=== PATIENT | female | born 1960 | race Caucasian/White ===

== ENCOUNTER → 2020-03-12 13:49 | Outpatient (CLI) | payer MEDICAID, SELFPAY ==
[2019-12-01 11:37] VITALS: BMI 47.2
--- NOTE | 2020-03-12 13:51 | CT_ITS ---
STUDY: CT CHEST WITHOUT CONTRAST REASON FOR EXAM: Female, 59 years old. COUGH, DYSPNEA. HI RES RADIATION DOSAGE (If Supplied By Facility): CTDIvol = ( 24.18 ) mGy, DLP = ( 775.89 ) mGycm TECHNIQUE: Transaxial imaging was performed without the administration of intravenous contrast material. Multiplanar coronal and sagittal images were reformatted. Individualized dose optimization techniques were used for this CT. COMPARISON: None. FINDINGS: Small benign-appearing bilateral axillary lymph nodes. Minimal degree of groundglass appearance is seen in the anterior peripheral aspect of the left upper lobe as well as in the left perihilar regions slightly more prominent on the right side. Mild degree of increased interstitial markings are seen in the posterior medial segments of the lower lobes suggestive of scarring. There is no demonstrated pleural abnormality. There are calcifications of the coronary arteries. Normal mediastinum. Normal hilar regions. Normal unenhanced pulmonary arteries. Normal aorta arch and descending thoracic aorta. There are multi-level degenerative changes of the thoracic spine. Diffuse fatty infiltration of the liver. CT/Chest without Contrast IMPRESSION: Findings suggest a mild degree of linear scarring at the lung bases as well as a mild degree of the groundglass appearance in the perihilar regions bilaterally as well as in the left upper lobe. Electronically Signed: Gaston Clifford, at 14:49 EST , Service support ,
== END ==
PROVIDERS: PCP Family Medicine; Referring Provider Internal Medicine Pulmonary Disease; Visit Provider Internal Medicine Pulmonary Disease
DX: R05 Cough (principal); R06.00 Dyspnea, unspecified
CPT/HCPCS: 71250

== ENCOUNTER 2020-04-10 12:25 | Day surgery (SDC) | payer MEDICAID, SELFPAY ==
[2019-12-01 11:37] VITALS: BMI 47.2
[2020-04-10] VITALS (12 sets, daily range): BP systolic 152–188; BP diastolic 74–107; PULSE 76–90; RESP 16–18; TEMP 36.2–36.8; O2SAT 93–100; BMI 47.5
--- NOTE | 2020-04-10 | FLU_PTH ---
PATIENT: MEET LOVETT LOC: EN U#:[id number] AGE/SX: 59/F ROOM: RE04/10/[address]: Dr. Obie Jacob MD : 1960 BED: DIS: 04/10/2020 SPEC #: [id number] RECD: 04/10/20 14:26 STATUS: CECILIA REQamar #: [id number] NETTA: 04/10/20 00:[address]: Obie Jacob V DEPT: CYTOLOGY RECD BY: Micheal Meadows ENTERED: 04/11/20 12:33 SP TYPE: Fluid OTHR DR: Dr. 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 AM:anne 04/12/2020 COMMENT See corresponding biopsy ([id number]). CYTOLOGY STUDY Slides are reviewed. CYTOLOGY GROSS Received is 55 ml of red cloudy fluid labeled with the patient's name and and designated per the requisition as BAL RML. Submitted for cytology preparation including cell block. / anne 04/11/2020 TC:5 CPT: 71058, 81710
--- NOTE | 2020-04-10 | LUNG_PTH ---
PATIENT: MEET LOVETT LOC: EN U#:[id number] AGE/SX: 59/F ROOM: RE04/10/[address]: Dr. Obie Jacob MD : 1960 BED: DIS: 04/10/2020 SPEC #: [id number] RECD: 04/10/20 14:26 STATUS: CECILIA CAT #: [id number] NETTA: 04/10/20 00:[address]: Obie Jacob V DEPT: SURGICAL PATHOLOGY RECD BY: Micheal Meadows ENTERED: 04/11/20 12:34 SP TYPE: LUNG BX OTHR DR: Dr. Jeniffer Vincent DO Tissues: Bronchus of right middle lobe Procedures: Elastin Stain (control) Trichrome (control) Special Stain Group II Surgery Specimen Level IV Retic (control) Iron Stain (control) HEADER OPERATION: Bronchoscopy with fluoroscopy (MAC) PRE-OP DIAGNOSIS: Idiopathic nonspecific interstitial pneumonitis TISSUE SUBMITTED: [facility] DIAGNOSIS Right middle lobe of lung, biopsy: Focal mild fibrosis. See microscopic description and comment. AM:anne 04/12/2020 COMMENT Special stains of trichrome, reticulin, elastin and iron with matched controls support the above diagnosis. Case has been reviewed in consultation with Dr. Ya who concurs with the above diagnosis. IDC:SJ MICROSCOPIC DESCRIPTION Microscopic sections show subbronchial tissue with mild fibrosis and fragments of parenchymal tissue with collapse of alveolar sacs and minimal increase in interalveolar fibrous tissue. There is no evidence of vasculitis and only minimal chronic inflammatory cells are present. There is no evidence of malignancy. GROSS DESCRIPTION Received in fixative is one container labeled with the patient's name and designated right middle lobe biopsy. The specimen consists of multiple irregular fragments of light andre soft tissue that in aggregate measure 0.8 x 0.5 x <0.1 cm. The specimen is totally submitted in one cassette. / AM:anne 04/11/20 TC:3 CPT: 57160, 51354 x4
[2020-04-10] MEDS: Lactated Ringers 1,000 ML 100 ML IV (12:56)
[2020-04-10] MEDS: Lidocaine 2% Jelly 1 APPLIC Tube (13:17)
[2020-04-10] MEDS: Phenylephrine 0.25% 15 ML NASAL.SRY 15 SPRAY NASAL (13:17)
[2020-04-10] MEDS: Lidocaine 2% (5ml sdv) 5 ML VIAL.MPF (13:20)
--- NOTE | 2020-04-10 14:13 | OP.BRONCH_ITS ---
Patient Name: Mila Mullins Procedure Date: 04/10/2020 1:06 PM Date of : 1960 Age: 59 Procedure: Bronchoscopy Indications: Chronic cough, Chronic cough with abnormal CT Providers: Obie Jacob MD Referring MD: Jeniffer Hoffman Do Medicines: Lidocaine 2% Nebulizer 2.5 mL, Lidocaine 2% applied to the tracheobronchial tree 10 mL Complications: No immediate complications. Estimated blood loss: Minimal Procedure: Pre-Anesthesia Assessment: - A History and Physical has been performed. The patient's medications, allergies and sensitivities have been reviewed. - The risks and benefits of the procedure and the sedation options and risks were discussed with the patient. All questions were answered and informed consent was obtained. - Patient identification and proposed procedure were verified prior to the procedure by the physician. The procedure was verified in the endoscopy suite. After I obtained informed consent, the scope was passed under direct vision. Throughout the procedure, the patient's blood pressure, pulse, and oxygen saturations were monitored continuously. The bronchoscope was introduced through the mouth and advanced to the tracheobronchial tree of both lungs. The procedure was accomplished without difficulty. The patient tolerated the procedure well. Moderate Sedation: An independent trained observer was present and continuously monitored the patient. Findings: Respiratory tract: The larynx is normal. The vocal cords appear normal. The subglottic space is normal. The trachea is of normal caliber. The paty is sharp. The entire tracheobronchial tree was examined to at least the first subsegmental level. Bronchial mucosa and anatomy are normal; there are no endobronchial lesions and no secretions, except in the except in both lower lobes. Transbronchial biopsies of an area of infiltration were performed in the lateral segment of the right middle lobe using forceps and sent for histopathology examination. The procedure was guided by fluoroscopy. Transbronchial biopsy technique was selected because the sampling site was not visible endoscopically. Five biopsy passes were performed. Five biopsy samples were obtained. Impression: - Chronic cough - Chronic cough with abnormal CT - Transbronchial lung biopsies were performed. Recommendation: - Await BAL, biopsy and cytology results. Procedure Code(s): --- Professional --- 89901, Bronchoscopy, rigid or flexible, including fluoroscopic guidance, when performed; with transbronchial lung biopsy(s), single lobe Diagnosis Code(s): --- Professional --- R05, Cough R91.8, Other nonspecific abnormal finding of lung field CPT copyright 2017 [employer]. All rights reserved. The codes documented in this report are preliminary and upon polisher balance screwhead review may be revised to meet current compliance requirements. MD Obie Dobbs MD 04/10/2020 2:12:49 PM This report has been signed electronically. Number of Addenda: 0 Note Initiated On: 04/10/2020 1:06 PM
--- NOTE | 2020-04-10 14:16 | RAD_ITS ---
STUDY: X-RAY CHEST REASON FOR EXAM: Female, 59 years old. Post op bronchoscopy. TECHNIQUE: Single AP portable view of the chest. COMPARISON: None. FINDINGS: There is evidence of consolidation in the right middle lobe. There is no demonstrated pleural abnormality. Normal size heart. Normal mediastinum and azra. Normal visualized pulmonary arteries. There is atherosclerotic tortuosity of the aortic arch and descending thoracic aorta. There are diffuse degenerative changes of the visualized thoracic spine. Normal visualized ribs, clavicles, and shoulders. There is no demonstrated abnormality of the visualized soft tissue structures of the upper abdomen. RAD/Chest 1 View (Portable) IMPRESSION: Right middle lobe consolidation. Electronically Signed: Gaston Clifford MD at 15:06 EST , Service support ,
[2020-04-10 14:53] LABS: Cytology, Body Fluid / CSF SEE PATHOLOGY REPORT
[2020-04-10 16:26] LABS: Source- Body Fluid BRONCHIAL LAVAGE
[2020-04-10 16:27] LABS: Appearance/Body Fluid TURBID; Color/Body Fluid RED
[2020-04-10 16:42] LABS: White Blood Count/Body Fluid 200 /mm3
[2020-04-10 17:43] LABS: Lymphocytes 26 %; Monocytes 2 %; Neutrophil (Segs) 72 %
[2020-04-10 17:45] LABS: Body Fluid QC Type(s) BF1Q
[2020-04-11 12:09] LABS: Pathologist Comment/Body Fluid Reviewed
== END 2020-04-10 16:19 | disposition home or self-care (01) ==
LOC: EN 12:26 → AC 12:26
PROVIDERS: PCP Family Medicine; Referring Provider Family Medicine; Visit Provider Internal Medicine Pulmonary Disease
PROC: 0BJ08ZZ Inspection of Tracheobronchial Tree, Via Natural or Artificial Opening Endoscopic (ICD-10-PCS; CPT 31622; principal; 2020-04-10 12:40)
DX: J84.113 Idiopathic non-specific interstitial pneumonitis (principal); Z20.822 Contact with and (suspected) exposure to COVID-19; J45.30 Mild persistent asthma, uncomplicated; R91.8 Other nonspecific abnormal finding of lung field; M32.9 Systemic lupus erythematosus, unspecified; M06.9 Rheumatoid arthritis, unspecified; M35.00 Sjogren syndrome, unspecified; E78.00 Pure hypercholesterolemia, unspecified; G47.33 Obstructive sleep apnea (adult) (pediatric); E66.09 Other obesity due to excess calories; Z68.42 Body mass index [BMI] 45.0-49.9, adult; Z79.899 Other long term (current) drug therapy; Z78.0 Asymptomatic menopausal state
CPT/HCPCS: 31628; 71045; 76000; 87015; 87101; 87116; 87206; 87426; 88108; 88305; 88313; 89050; C9803; J7120

== ENCOUNTER → 2020-05-15 15:46 | Outpatient (CLI) | payer MEDICAID, SELFPAY ==
[2020-04-10 12:49] VITALS: BMI 47.5
--- NOTE | 2020-05-15 16:06 | RAD_ITS ---
STUDY: X-RAY CHEST REASON FOR EXAM: Female, 60 years old. ASTHMA/INTERSTITIAL PNEUMONIA TECHNIQUE: 2 views COMPARISON: Prior chest radiograph of 04/10/2020 FINDINGS: The right middle lobe pneumonic infiltrate has essentially resolved from the prior exam. Lung mackey are now expanded and clear of acute changes. Normal size heart. Normal mediastinum and azra. Normal visualized pulmonary arteries. Normal visualized aortic arch and descending thoracic aorta. There are diffuse degenerative changes of the visualized thoracic spine. Normal visualized ribs, clavicles, and shoulders. There is no demonstrated abnormality of the visualized soft tissue structures of the upper abdomen. RAD/Chest PA and Lateral IMPRESSION: Normal chest with no consolidation, infiltrates, pleural effusion or cardiomegaly. Complete clearing of the prior right middle lobe pneumonia. Electronically Signed: Haleigh Braga MD at 16:30 EST , Service support ,
[2020-05-15 16:52] LABS: Basophil# 0.02 X10^3/uL; Basophil% 0.2 % (0-1); Eosinophil# 0.01 X10^3/uL; Eosinophils% 0.1 % (0-5); Hemoglobin 15.6 g/dL (12.0-15.0); Lymphocyte % 10.5 % (19-41); Mean Corp Hgb Conc 32.5 g/dL (32-36); Mean Corpuscular Volume 101.5 fL (81-99); Mean Platelet Vol. 10.2 fl (6.2-12.0); Monocyte# 0.16 X10^3/uL; Monocyte% 1.4 % (0-10); NRBC Flagged by Analyzer 0 % (0-5); Neutrophil # 9.96 X10^3/uL (2.7-7.7); Neutrophil % 87.3 % (47-70); Platelet Count 310 K/mm3 (150-450); RBC Distribution Width CV 12.6 % (11.6-14.6); RBC Distribution Width SD 47.9 fl (35.1-43.9); Red Blood Count 4.73 M/mm3 (4.2-5.4); White Blood Count 11.4 K/mm3 (4.4-11.0)
[2020-05-15 17:18] LABS: Erythrocyte Sedimentation Rate 3 mm/hr (0-30)
[2020-05-15 17:42] LABS: AST(SGOT) 28 U/L (15-37); Alanine Aminotransfer ALT/SGPT 48 U/L (13-56); Albumin, Serum 4.1 g/dL (3.2-5.0); Alkaline Phosphatase 68 U/L (45-117); Bilirubin, Direct 0.12 mg/dL (0.00-0.30); Globulin 3.5 g/dL (2.2-4.2); Protein, Total 7.6 g/dL (6.4-8.2)
== END ==
PROVIDERS: PCP Family Medicine; Referring Provider Internal Medicine Pulmonary Disease; Visit Provider Internal Medicine Pulmonary Disease
DX: J45.909 Unspecified asthma, uncomplicated (principal); J84.89 Other specified interstitial pulmonary diseases
CPT/HCPCS: 36415; 71046; 80076; 85025; 85652

== ENCOUNTER → 2020-06-10 14:26 | Outpatient (CLI) | payer MEDICAID, SELFPAY ==
[2020-04-10 12:49] VITALS: BMI 47.5
--- NOTE | 2020-06-10 14:29 | RAD_ITS ---
INDICATION: BACK,LEG PAIN EXAMINATION/TECHNIQUE: X-RAY - XR Spine Lumbar 2 or 3 Views COMPARISON: None. FINDINGS: VERTEBRAE: Preserved vertebral body height. No fracture. No spondylolisthesis. Preservation of the normal lumbar lordosis. Moderate multilevel facet arthropathy. Posterior fusion hardware seen at L4-5. No evidence of hardware failure or loosening. DISCS: Moderate multilevel disc space narrowing and osteophytosis, most severe at L3-4. INCLUDED ABDOMEN: Included bowel gas pattern is non-obstructive. Large amount of retained stool in the colon. RAD/Lumbar Spine 2 or 3 Views IMPRESSION: No acute abnormalities. Moderate multilevel lumbar spondylosis and facet arthropathy. Posterior fusion hardware seen at L4-5 with no evidence of hardware failure or loosening. Large amount of retained stool in the colon. Electronically Signed: Pino Navarro MD at 20:07 EDT Tel , Service support ,
== END ==
PROVIDERS: PCP Family Medicine; Referring Provider Anesthesiology Pain Medicine; Visit Provider Anesthesiology Pain Medicine
DX: M54.9 Dorsalgia, unspecified (principal); M79.606 Pain in leg, unspecified
CPT/HCPCS: 72100

== ENCOUNTER → 2020-07-04 12:56 | Outpatient (CLI) | payer MEDICAID, SELFPAY ==
[2020-04-10 12:49] VITALS: BMI 47.5
[2020-07-04 13:29] LABS: Erythrocyte Sedimentation Rate 2 mm/hr (0-30)
[2020-07-04 13:45] LABS: CRP 3.79 mg/L (0.0-3.0)
== END ==
PROVIDERS: PCP Family Medicine; Referring Provider Internal Medicine Pulmonary Disease; Visit Provider Internal Medicine Pulmonary Disease
DX: J84.89 Other specified interstitial pulmonary diseases (principal); I27.20 Pulmonary hypertension, unspecified
CPT/HCPCS: 36415; 85652; 86140

== ENCOUNTER → 2020-09-02 13:34 | Outpatient (CLI) | payer MEDICAID, SELFPAY ==
[2020-04-10 12:49] VITALS: BMI 47.5
--- NOTE | 2020-09-02 13:42 | CT_ITS ---
STUDY: CT CHEST WITHOUT CONTRAST REASON FOR EXAM: Female, 60 years old. Idiopathic non-specific interstitial pneumonitis RADIATION DOSAGE (If Supplied By Facility): CTDIvol = ( 20.02 ) mGy, DLP = ( 710.36 ) mGycm TECHNIQUE: Transaxial imaging was performed without the administration of intravenous contrast material. Individualized dose optimization techniques were used for this CT. COMPARISON: 03/12/2020 FINDINGS: Improved bilateral groundglass densities consistent with improved subsegmental atelectasis or pneumonitis. No change in right lower lobe cylindrical bronchiectasis and scarring. No change in a 4 mm noncalcified nodule anterior right lower lobe the lungs on image 81. Follow-up CT is recommended in 12 months document stability. No CT evidence of interstitial lung disease. There is no demonstrated pleural abnormality. Normal heart and pericardium. Normal mediastinum. Normal hilar regions. Normal unenhanced pulmonary arteries. Normal aorta arch and descending thoracic aorta. Normal osseous structures. Diffusely decreased attenuation of the hepatic parenchyma consistent with fatty infiltration. CT/Chest without Contrast IMPRESSION: 1. Improved bilateral subsegmental atelectasis or pneumonitis. 2. No change in 4 mm right lower lobe nodule and follow-up CT is recommended in 12 months document stability. 3. Fatty infiltration of the liver. Electronically Signed: Fabiano Gracia MD at 15:03 EDT Tel , Service support ,
[2020-09-02 14:10] LABS: Hematocrit 40.3 % (37-47); Hemoglobin 13.6 g/dL (12.0-15.0); Mean Corp Hgb Conc 33.7 g/dL (32-36); Mean Corpuscular Hgb 33.8 pg (27.0-32.0); Mean Corpuscular Volume 100.2 fL (81-99); Mean Platelet Vol. 9.5 fl (6.2-12.0); Platelet Count 329 K/mm3 (150-450); RBC Distribution Width CV 12.9 % (11.6-14.6); RBC Distribution Width SD 47.7 fl (35.1-43.9); Red Blood Count 4.02 M/mm3 (4.2-5.4); White Blood Count 9.9 K/mm3 (4.4-11.0)
== END ==
PROVIDERS: PCP Family Medicine; Referring Provider Internal Medicine Pulmonary Disease; Visit Provider Internal Medicine Pulmonary Disease
DX: J84.113 Idiopathic non-specific interstitial pneumonitis (principal); J45.30 Mild persistent asthma, uncomplicated
CPT/HCPCS: 36415; 71250; 85027

== ENCOUNTER → 2020-12-31 14:45 | Outpatient (CLI) | payer MEDICAID, SELFPAY ==
[2020-12-31 15:58] LABS: Amphetamine Urine VISTA NEGATIVE (<1000 ng/mL); Barbiturate Urine VISTA NEGATIVE (< 200 ng/mL); Benzodiazepine Urine VISTA NEGATIVE (< 200 ng/mL); Cocaine Urine VISTA NEGATIVE (< 300 ng/mL); Ecstacy Urine VISTA NEGATIVE (< 500 ng/mL); Methadone Urine VISTA NEGATIVE (< 300 ng/mL); PCP Urine VISTA NEGATIVE (< 25 ng/mL); THC Urine VISTA NEGATIVE (< 50 ng/mL)
[2020-12-31 15:59] LABS: Vista UDS pH Range 6
== END ==
PROVIDERS: PCP Family Medicine; Referring Provider Anesthesiology Pain Medicine; Visit Provider Anesthesiology Pain Medicine
DX: F11.20 Opioid dependence, uncomplicated (principal)
CPT/HCPCS: 80307

== ENCOUNTER → 2021-07-02 | Outpatient (CLI) | payer MEDICAID, SELFPAY ==
[2021-07-02 17:21] LABS: Amphetamine Urine VISTA NEGATIVE (<1000 ng/mL); Barbiturate Urine VISTA NEGATIVE (< 200 ng/mL); Benzodiazepine Urine VISTA NEGATIVE (< 200 ng/mL); Cocaine Urine VISTA NEGATIVE (< 300 ng/mL); Ecstacy Urine VISTA NEGATIVE (< 500 ng/mL); Methadone Urine VISTA NEGATIVE (< 300 ng/mL); PCP Urine VISTA NEGATIVE (< 25 ng/mL); THC Urine VISTA NEGATIVE (< 50 ng/mL); Vista UDS pH Range 6
== END | disposition home or self-care (01) ==
LOC: LAB 15:56
PROVIDERS: PCP Family Medicine; Visit Provider Anesthesiology Pain Medicine
DX: F11.20 Opioid dependence, uncomplicated (principal)
CPT/HCPCS: 80307

== ENCOUNTER → 2021-09-18 | Outpatient (CLI) | payer MEDICAID, SELFPAY ==
--- NOTE | 2021-09-18 11:31 | PFT ---
INTRODUCTION: The patient is a 61-year-old female that presents for pulmonary function studies secondary to a diagnosis of Sjogren's syndrome. Respiratory therapy reported good patient effort. Bronchodilators were used during testing. INTERPRETATION: Forced expiration spirometry demonstrates no evidence of a large airways obstructive ventilatory defect. There was no significant response to aerosolized bronchodilators. Spirograms are of good quality and plateau normally. Body plethysmography was performed and reveals lung volumes to be within normal limits. Diffusing capacity by single breath CO is mildly reduced at 66% of predicted. IMPRESSION: Isolated mild reduction in diffusing capacity.
== END | disposition home or self-care (01) ==
LOC: PSN 09:29
PROVIDERS: PCP Family Medicine; Referring Provider Internal Medicine Critical Care Medicine; Visit Provider Internal Medicine Critical Care Medicine
DX: M35.00 Sjogren syndrome, unspecified (principal)
CPT/HCPCS: 94060; 94726; 94729

== ENCOUNTER → 2021-09-23 | Outpatient (CLI) | payer MEDICAID, SELFPAY ==
[2021-09-23 12:45] VITALS: PULSE 100; PULSE 103; PULSE 107; PULSE 109; PULSE 110; PULSE 94; O2SAT 93; O2SAT 94; O2SAT 97; O2SAT 98
--- NOTE | 2021-09-23 14:49 | PCM.PSN.6M ---
PSN 6 Minute Walk Test 6 Minute Walk Test 6 Minute Walk Test: 6 Minute Walk Test PSN:6-Minute Walk Test Start: 09/23/21 12:56 Freq: Status: Active Protocol: RESP.6MINW Document 09/23/21 12:45 (Rec: 09/23/21 13:01 [id number]) 6 Minute Walk Test Date Performed 09/23/21 Time Performed 12:45 Height 4 ft 11 in Weight: 109.316 kg Weight in Pounds 241.[address]: Franco Vides FIO2 (% Oxygen) 21 Assistive device used: None Pre-test Oxygen Delivery Method Room Air Pulse Ox (%) 98 Pulse Rate (60-100 beats/min) 94 Dyspnea Marguerite Scale (0-10) 0 Exertion Marguerite Scale (6-20) 6 1st minute Oxygen Delivery Method Room Air Pulse Ox (%) 94 Pulse Rate (60-100 beats/min) 103 H 2nd minute Oxygen Delivery Method Room Air Pulse Ox (%) 93 Pulse Rate (60-100 beats/min) 107 H 3rd minute Oxygen Delivery Method Room Air Pulse Ox (%) 94 Pulse Rate (60-100 beats/min) 107 H 4th minute Oxygen Delivery Method Room Air Pulse Ox (%) 94 Pulse Rate (60-100 beats/min) 109 H 5th minute Oxygen Delivery Method Room Air Pulse Ox (%) 94 Pulse Rate (60-100 beats/min) 110 H 6th minute Oxygen Delivery Method Room Air Pulse Ox (%) 93 Pulse Rate (60-100 beats/min) 110 H Post-test Oxygen Delivery Method Room Air Pulse Ox (%) 97 Pulse Rate (60-100 beats/min) 100 Dyspnea Marguerite Scale (0-10) 0 Exertion Marguerite Scale (6-20) 13 Full Laps Walked 12 Partial Lap, Number of Tiles Walked 0 Total Distance Walked (ft) 708 Interpretation Interpretation: The patient was able to ambulate 708 feet over the course of 6 minutes on room air with the assistance of a cane and no breaks. The patient experienced no significant desaturation, but did have a peak heart rate of 110 bpm. These findings are consistent with deconditioning. Recommendations Recommendations: No supplemental oxygen is indicated at this time.
== END | disposition home or self-care (01) ==
LOC: PSN 12:27
PROVIDERS: PCP Family Medicine; Referring Provider Internal Medicine Critical Care Medicine; Visit Provider Internal Medicine Critical Care Medicine
DX: M35.00 Sjogren syndrome, unspecified (principal)
CPT/HCPCS: 94618

== ENCOUNTER → 2022-07-30 | Outpatient (CLI) | payer MEDICAID, SELFPAY ==
--- NOTE | 2022-07-31 06:00 | PFTCOMP_ITS ---
COMPLETE PULMONARY FUNCTION TEST INTERPRETATION Brief HPI: Patient is a 62-year-old female, currently under the care of myself, who presents to [facility] for complete pulmonary function tests secondary to diagnosis of Sjogren syndrome. Respiratory therapist reports good effort and reproducible results. Interpretation: Forced expiration spirometry shows no large airways obstructive ventilatory defect with an FEV1 of 99% predicted. There is no significant bronchodilator response by strict ATS criteria. Spirograms are of good quality and plateau normally. The respiratory flow volume loop shows a normal pattern. Lung volumes by body plethysmography show a normal total lung capacity at 3.83 L, 99% predicted. All other lung volumes are within normal limits. Diffusion capacity by carbon monoxide is at the lower limit of normal at 67% predicted. The airway resistance is normal. Compared to previous pulmonary function tests from 09/18/2021, there has been no significant change. Impression: These pulmonary function tests are grossly within normal limits. Diffusion capacity is at the lower limit of normal, but remained stable compared to previous year
== END | disposition home or self-care (01) ==
LOC: PSN 09:20
PROVIDERS: PCP Family Medicine; Referring Provider Internal Medicine Critical Care Medicine; Visit Provider Internal Medicine Critical Care Medicine
DX: M35.00 Sjogren syndrome, unspecified (principal)
CPT/HCPCS: 94060; 94726; 94729

== ENCOUNTER → 2023-04-07 | Outpatient (CLI) | payer MEDICAID, SELFPAY ==
[2023-04-07 16:06] LABS: Amphetamine Urine VISTA NEGATIVE (<1000 ng/mL); Barbiturate Urine VISTA NEGATIVE (< 200 ng/mL); Benzodiazepine Urine VISTA NEGATIVE (< 200 ng/mL); Cocaine Urine VISTA NEGATIVE (< 300 ng/mL); Ecstacy Urine VISTA NEGATIVE (< 500 ng/mL); Methadone Urine VISTA NEGATIVE (< 300 ng/mL); PCP Urine VISTA NEGATIVE (< 25 ng/mL); THC Urine VISTA NEGATIVE (< 50 ng/mL); Vista UDS pH Range 5
== END | disposition home or self-care (01) ==
LOC: LAB 15:16
PROVIDERS: PCP Family Medicine; Referring Provider Anesthesiology Pain Medicine; Visit Provider Anesthesiology Pain Medicine
DX: F11.20 Opioid dependence, uncomplicated (principal)
CPT/HCPCS: 80307

== ENCOUNTER → 2023-11-02 | Outpatient (CLI) | payer MEDICAID, SELFPAY | END | disposition home or self-care (01) | LOC: PSN 11:58 | PROVIDERS: PCP Family Medicine; Referring Provider Nurse Practitioner Acute Care; Visit Provider Nurse Practitioner Acute Care | DX: R06.00 Dyspnea, unspecified (principal) | CPT/HCPCS: 94060; 94726; 94729 ==

== ENCOUNTER → 2023-11-03 | Outpatient (CLI) | payer MEDICAID, SELFPAY ==
[2023-11-03 17:28] LABS: Amphetamine Urine VISTA NEGATIVE (<1000 ng/mL); Barbiturate Urine VISTA NEGATIVE (< 200 ng/mL); Benzodiazepine Urine VISTA NEGATIVE (< 200 ng/mL); Cocaine Urine VISTA NEGATIVE (< 300 ng/mL); Ecstacy Urine VISTA NEGATIVE (< 500 ng/mL); Methadone Urine VISTA NEGATIVE (< 300 ng/mL); PCP Urine VISTA NEGATIVE (< 25 ng/mL); THC Urine VISTA NEGATIVE (< 50 ng/mL); Vista UDS pH Range 4
== END | disposition home or self-care (01) ==
PROVIDERS: PCP Family Medicine; Referring Provider Anesthesiology Pain Medicine; Visit Provider Anesthesiology Pain Medicine
DX: F11.20 Opioid dependence, uncomplicated (principal)
CPT/HCPCS: 80307

== ENCOUNTER → 2023-11-04 | Outpatient (CLI) | payer MEDICAID, SELFPAY ==
[2023-11-04 12:30] VITALS: PULSE 100; PULSE 101; PULSE 103; PULSE 83; PULSE 94; PULSE 99; O2SAT 90; O2SAT 92; O2SAT 93
--- NOTE | 2023-11-09 10:29 | PCM.PSN.6M ---
PSN 6 Minute Walk Test 6 Minute Walk Test 6 Minute Walk Test: 6 Minute Walk Test PSN:6-Minute Walk Test Start: 11/04/23 12:59 Freq: Status: Discharge Protocol: RESP.6MINW Document 11/04/23 12:30 AEH (Rec: 11/04/23 13:04 AE [id number]) 6 Minute Walk Test Date Performed 11/04/23 Time Performed 12:30 Height 5 ft Weight: 224 lb Weight in Pounds 224.[address]: Manisha Assistive device used: Cane Pre-test Oxygen Delivery Method Room Air Pulse Ox (%) 92 Pulse Rate (60-100 beats/min) 83 Dyspnea Marguerite Scale (0-10) 0.5 Exertion Marguerite Scale (6-20) 6 1st minute Oxygen Delivery Method Room Air Pulse Ox (%) 92 Pulse Rate (60-100 beats/min) 100 2nd minute Oxygen Delivery Method Room Air Pulse Ox (%) 93 Pulse Rate (60-100 beats/min) 103 H 3rd minute Oxygen Delivery Method Room Air Pulse Ox (%) 92 Pulse Rate (60-100 beats/min) 99 4th minute Oxygen Delivery Method Room Air Pulse Ox (%) 92 Pulse Rate (60-100 beats/min) 101 H 5th minute Oxygen Delivery Method Room Air Pulse Ox (%) 90 Pulse Rate (60-100 beats/min) 103 H 6th minute Oxygen Delivery Method Room Air Pulse Ox (%) 93 Pulse Rate (60-100 beats/min) 103 H Dyspnea Marguerite Scale (0-10) 0.5 Exertion Marguerite Scale (6-20) 13 Post-test Oxygen Delivery Method Room Air Pulse Ox (%) 92 Pulse Rate (60-100 beats/min) 94 Full Laps Walked 8 Partial Lap, Number of Tiles Walked 9 Total Distance Walked (ft) 481 Interpretation Interpretation: The patient ambulated 481 feet over the course of 6 minutes beginning on room air with use of a cane. Pretesting oxygen saturation was noted to be 92% on room air. With ambulation, the pérez oxygen saturation was 90%. Although there was evidence of impaired walk distance, there was no significant exertional oxygen desaturation. Recommendations Recommendations: There is no indication for the use of supplemental oxygen at this time.
== END | disposition home or self-care (01) ==
LOC: PSN 12:34
PROVIDERS: PCP Family Medicine; Referring Provider Nurse Practitioner Acute Care; Visit Provider Nurse Practitioner Acute Care
DX: R06.00 Dyspnea, unspecified (principal)
CPT/HCPCS: 94618

== ENCOUNTER → 2024-08-22 | Outpatient (CLI) | payer MEDICAID, SELFPAY | END | disposition home or self-care (01) | LOC: LAB 11:04 | PROVIDERS: PCP Family Medicine; Referring Provider Anesthesiology Pain Medicine; Visit Provider Anesthesiology Pain Medicine | DX: F11.20 Opioid dependence, uncomplicated (principal) ==

== ENCOUNTER → 2024-09-19 | Outpatient (CLI) | payer MEDICAID, SELFPAY ==
[2024-09-19 13:03] LABS: Barbiturate Urine NEGATIVE (< 200 ng/mL); Benzodiazepine Urine NEGATIVE (< 200 ng/mL); PCP Urine NEGATIVE (< 25 ng/mL); THC Urine NEGATIVE (< 50 ng/mL)
== END | disposition home or self-care (01) ==
LOC: LAB 12:05
PROVIDERS: PCP Family Medicine; Referring Provider Anesthesiology Pain Medicine; Visit Provider Anesthesiology Pain Medicine
DX: F11.20 Opioid dependence, uncomplicated (principal)
CPT/HCPCS: 80307